=== PATIENT | female | born 1960 | race Caucasian/White ===

== ENCOUNTER 2016-08-01 21:23 | Emergency (ER) | payer SELFPAY ==
--- NOTE | 2016-08-01 22:14 | ED Physician Chart ---
Chief Complaint/HPI - Patient Information Date Seen:: 08/01/16 Time Seen:: 22:08 Chief Complaint:: neck pain History of Present Illness:: pt began w pain in back of head/top of neck after argument this afternoon. pain is similar to episode she had 3 months ago..resolved without med. no relief w tylenol. no fever. no rash. no weakness/no numbness/ no neuro change. no confusion, no sz. , no vis change no hx trauma. not worst jones ever. pt has no pmd and doesnt know if she has htn hx. no major pmh she is aware of x asthma Allergies:: Allergies Allergy/AdvReac Type Severity Reaction Status Date / Time No Known Allergies Allergy Verified 08/01/16 21:50 Vitals:: Vital Signs - 8 hr 08/01/16 21:30 Temp 98.1 F HR 82 RR 18 BP 149/89 O2 Sat % 95 Historian:: Patient, Family Member, Friend Review of Systems - Review of Systems General/Constitutional: No fever, No chills, No weight loss, No weakness, No diaphoresis, No edema, No loss of appetite Skin: No skin lesions, No rash, No bruising Head: No headache, No light-headedness Eyes: No loss of vision, No pain, No diplopia ENT: No earache, No nasal drainage, No sore throat, No tinnitus Neck: Neck pain, No swelling, No thyromegaly, No stiffness, No mass noted Cardio Vascular: No chest pain, No palpitations, No PND, No orthopnea, No edema Pulmonary: No SOB, No cough, No sputum, No wheezing GI: No nausea, No vomiting, No diarrhea, No pain, No melena, No hematochezia, No constipation, No hematemesis G/U: No dysuria, No frequency, No hematuria Musculoskeletal: No bone or joint pain, No back pain, No muscle pain Endocrine: No polyuria, No polydipsia Psychiatric: No prior psych history, No depression, No anxiety, No suicidal ideation Hematopoietic: No bruising, No lymphadenopathy Allergic/Immuno: No urticaria, No angioedema Neurological: No syncope, No focal symptoms, No weakness, No paresthesia, No headache, No seizure, No dizziness, No confusion, No vertigo Past Medical History - Past Medical History Past Medical History: Asthma/COPD Social History: Non Smoker Surgical History: Medication: Reviewed Family Medical History - Family Member Mother History Unknown: Yes Physical Exam - Physical Examination General/Constitutional: Awake, Well-developed, well-nourished, Alert, No distress, GCS 15, Non-toxic appearing, Ambulatory Other Gen/Cons comments:: neck supple, nontoxic pt. no cx nodes. Head: Atraumatic Eyes: Lids, conjuctiva normal, PERRL, EOMI Skin: Nl inspection, No rash, No skin lesions, No ecchymosis, Well hydrated, No lymphadenopathy ENMT: External ears, nose nl, Nasal exam nl, Lips, teeth, gums nl Neck: No JVD, No nuchal rigidity, No bruit, No mass, No stridor Other Neck comments:: tndr at occipital insertion of neck muscles. worse pain w retroflexion of neck vs resistance. no sign of infection or trauma. alert nontoxic. no rash. nrml str/sens x 4 extr, cn 2-12 wnl Respiratory: Nl effort/Exclusion, Clear to Auscultation, No Wheeze/Rhonchi/Rales Cardio Vascular: RRR, No murmur, gallop, rubs, NL S1 S2 GI: No tenderness/rebounding/guarding, No organomegaly, No hernia, Normal BS's, Nondistended, No mass/bruits, No McBurney tenderness Other GI comments:: feels bloated lately : No CVA tenderness Extremities: No tenderness or effusion, Full ROM, normal strength in all extremities, No edema, Normal digits & nails Neuro/Psych: Alert/oriented, DTR's symmetric, Normal sensory exam, Normal motor strength, Judgement/insight normal, Mood normal, Normal gait, No focal deficits Misc: normal gait, Normal back, No paraspinal tenderness ED Septic Shock - . Is Septic Shock (SBP<90, OR Lactate>4 mmol\L) present?: No - <6hrs of presentation: Vital Signs: Vital Signs - 8 hr 08/01/16 21:30 Temp 98.1 F HR 82 RR 18 BP 149/89 O2 Sat % 95 Reassessment (Disposition) - Reassessment Reassessment:: plan dw pt...needs to get bp rechk at pmd this week. flexeril for m tension and may use motrin or ice/heat also. return if worse/neuro changes.or fever or rash or worst jones ever. Reassessment Condition:: Unchanged - Diagnosis Diagnosis:: 1 muscle tension of upper neck vs occipital insertion tendinitis. 2 borderline htn - Aftercare/Follow up Instructions Aftercare/Follow-Up Instructions:: Counseled pt & family regarding lab results/ diagnosis & need follow up Medication Prescribed:: rx flexeril prn use motrin. see pmd this week for rechk. bp rechk advisable. - Patient Disposition Discharge/Transfer:: Home Condition at Disposition:: Unchanged
== END 2016-08-01 22:25 | disposition home or self-care (01) ==
LOC: ER 21:23
DX: M54.2 Cervicalgia (principal); J44.9 Chronic obstructive pulmonary disease, unspecified; J45.909 Unspecified asthma, uncomplicated
CPT/HCPCS: Z7502